=== PATIENT | female | born 1970 | race Caucasian/White ===

== ENCOUNTER 2018-12-17 09:34 | Inpatient (IN) | payer MEDICAID, MEDICARE ==
[~2018-12-17] VITALS: Ht 149.9 cm; Wt 55.9 kg
[~2018-12-17 09:34] MED LIST: ADV500 IH; CLOZ100 PO; FERR-89 PO; FOLI1 PO; INSLAN SQ; LEVO50TA4 PO; METF-445 PO; METO25 PO; PANT40TA25 PO; SIMV-260 PO; SITA25 PO
[2018-12-17 10:14] LABS: GLUCOSE,POINT OF CARE 195 MG/DL (70-110)
[2018-12-17 11:41] LABS: BASOPHILS % (AUTO) 0.5 % (0.0-2.0); HEMATOCRIT 35.6 % (36-46); HEMOGLOBIN 11.3 g/dL (12.0-16.0); LYMPHOCYTES # (AUTO) 1.6 K/uL (1.0-4.8); LYMPHOCYTES % (AUTO) 17.7 % (22.0-44.0); MEAN CORPUSCULAR HEMOGLOBIN 26.4 pg (26.0-34.0); MEAN CORPUSCULAR HGB CONC 31.7 G/dL (31.0-37.0); MEAN CORPUSCULAR VOLUME 83 fL (80-100); MONOCYTES # (AUTO) 0.6 K/uL (0.1-1.0); MONOCYTES % (AUTO) 7.3 % (2.0-9.0); NEUTROPHILS # (AUTO) 6.5 K/uL (1.8-7.7); NEUTROPHILS % (AUTO) 73.5 % (40.0-70.0); PLATELET COUNT (AUTO) 357 K/uL (150-450); RED BLOOD CELL COUNT(AUTO) 4.28 MIL/uL (4.00-5.20); RED CELL DISTRIBUTION WIDTH 15.6 % (11.5-14.5)
[2018-12-17 11:42] LABS: AMPHET/METH SCREEN,URINE NEGATIVE (NEGATIVE); BARBITURATE SCREEN, URINE NEGATIVE (NEGATIVE); BENZODIAZEPINES SCREEN,URINE NEGATIVE (NEGATIVE); CANNABINOID SCREEN,URINE NEGATIVE (NEGATIVE); COCAINE SCREEN,URINE NEGATIVE (NEGATIVE); METHADONE SCREEN, URINE NEGATIVE (NEGATIVE); OPIATE SCREEN,URINE NEGATIVE (NEGATIVE)
[2018-12-17 11:43] LABS: PHENCYCLIDINE SCREEN,URINE NEGATIVE (NEGATIVE)
[2018-12-17 11:49] LABS: ANION GAP 10 mmol/L (8-16); CALCIUM, TOTAL 8.6 mg/dL (8.8-10.5); CARBON DIOXIDE 25 mmol/L (22-29); CHLORIDE 105 mmol/L (98-107); CREATININE 1.07 mg/dL (0.60-1.30); GLOMERULAR FILTR. RATE CALC 54 mL/min (>60); GLUCOSE,RANDOM 142 mg/dL (70-110); POTASSIUM 3.8 mmol/L (3.5-5.1); SODIUM SERUM 140 mmol/L (136-145); UREA NITROGEN, BLOOD 13 mg/dL (7-18)
[2018-12-17 11:55] LABS: ALANINE AMINOTRANSFERASE 23 U/L (12-78); ALBUMIN 3.1 g/dL (3.4-5.0); ALKALINE PHOSPHATASE 85 U/L (46-116); ASPARTATE AMINOTRANSFERASE 29 U/L (15-37); BILIRUBIN,TOTAL 0.4 mg/dL (0.1-1.0); TOTAL PROTEIN, SERUM 6.4 g/dL (6.4-8.2)
[2018-12-17 11:56] LABS: APPEARANCE,URINE CLEAR (CLEAR); BILIRUBIN,URINE NEGATIVE (NEGATIVE); GLUCOSE, URINE (UA) NEGATIVE (NEGATIVE); KETONES,URINE 15 mg/dL (NEGATIVE); LEUKOCYTE ESTERASE ,URINE NEGATIVE (NEGATIVE); NITRATE,URINE NEGATIVE (NEGATIVE); OCCULT BLOOD,URINE NEGATIVE (NEGATIVE); PH,URINE 5.5 (5.0-8.0); PROTEIN,URINE NEGATIVE (NEGATIVE); UROBILINOGEN,URINE 0.2 mg/dL (<=1.0)
[2018-12-17] MEDS ORDERED: HALOPERIDOL 5 MG TABLET PO PRN (16:15)
[2018-12-17 18:54] LABS: GLUCOMETER DEV NAME(LOC) BV2X.; GLUCOSE,POINT OF CARE 310 MG/DL (70-110)
[2018-12-17 18:55] VITALS: BP 126/86
[2018-12-17] MEDS ORDERED: MAGNESIUM HYDROXIDE SUSPENSION 30 ML UDCUP PO PRN (19:30)
[2018-12-17] MEDS ORDERED: ONDANSETRON HCL 4 MG TABLET PO PRN (19:30)
[2018-12-17] MEDS ORDERED: NICOTINE 14 MG/24 HOUR PATCH TD PRN (19:30)
[2018-12-17] MEDS ORDERED: DOCUSATE SODIUM 100 MG CAPSULE PO PRN (19:30)
[2018-12-17] MEDS ORDERED: GLUCAGON,HUMAN RECOMBINANT 1 MG VIAL IM PRN (19:30)
[2018-12-17] MEDS ORDERED: CloNIDine HCL 0.1 MG TABLET PO PRN (19:30)
[2018-12-17] MEDS ORDERED: ACETAMINOPHEN 325 MG TABLET PO PRN (19:30)
[2018-12-17] MEDS ORDERED: ALBUTEROL SULFATE HFA 90 MCG/PUFF 8 GM INHALER IH PRN (19:30)
[2018-12-17] MEDS ORDERED: GuaiFENesin/D-METHORPHAN [SUGAR-FREE] 200-20MG/10 ML SYRUP UDCUP PO PRN (19:30)
[2018-12-17] MEDS ORDERED: LOPERAMIDE HCL 2 MG CAPSULE PO PRN (19:30)
[2018-12-17] MEDS ORDERED: MAG HYDROX/AL HYDROX/SIMETH ES 30 ML SUSPENSION UDCUP PO PRN (19:30)
[2018-12-17] MEDS ORDERED: PETROLATUM,WHITE 28 GM JELLY TP PRN (19:30)
[2018-12-17 20:29] LABS: GLUCOMETER DEV NAME(LOC) BV2X.; GLUCOSE,POINT OF CARE 209 MG/DL (70-110)
[2018-12-17] MEDS: LORazepam 2 MG TABLET PO PRN (20:36)
[2018-12-17] MEDS: FLUTICASONE/VILANTEROL 200-25 MCG/INH INHALER [14] IH SCH (20:43)
[2018-12-17] MEDS: INSULIN LISPRO 100 UNITS/ML SQ PRN (20:47)
[2018-12-17] MEDS: INSULIN GLARGINE,HUM.REC.ANLOG 100 UNITS/ML SQ SCH (20:47)
[2018-12-18 00:40] VITALS: BP 117/66
[2018-12-18] MEDS ORDERED: LEVOTHYROXINE SODIUM 100 MCG TABLET PO SCH (06:30)
[2018-12-18] MEDS: MetFORMIN HCL 850 MG TABLET PO SCH ×3 (07:00→17:05)
[2018-12-18] MEDS: FERROUS SULFATE 325 MG EC TABLET PO SCH (07:00)
[2018-12-18 07:10] LABS: GLUCOMETER DEV NAME(LOC) BV2X.; GLUCOSE,POINT OF CARE 135 MG/DL (70-110)
[2018-12-18 07:57] LABS: BASOPHILS % (AUTO) 0.9 % (0.0-2.0); EOSINOPHILS % (AUTO) 2.9 % (1.0-6.0); HEMATOCRIT 34.6 % (36-46); HEMOGLOBIN 11.3 g/dL (12.0-16.0); LYMPHOCYTES # (AUTO) 1.6 K/uL (1.0-4.8); LYMPHOCYTES % (AUTO) 25.1 % (22.0-44.0); MEAN CORPUSCULAR HEMOGLOBIN 26.9 pg (26.0-34.0); MEAN CORPUSCULAR HGB CONC 32.7 G/dL (31.0-37.0); MEAN CORPUSCULAR VOLUME 83 fL (80-100); MONOCYTES # (AUTO) 0.5 K/uL (0.1-1.0); MONOCYTES % (AUTO) 7.9 % (2.0-9.0); NEUTROPHILS % (AUTO) 63.2 % (40.0-70.0); PLATELET COUNT (AUTO) 339 K/uL (150-450); RED BLOOD CELL COUNT(AUTO) 4.19 MIL/uL (4.00-5.20); RED CELL DISTRIBUTION WIDTH 15.9 % (11.5-14.5)
[2018-12-18 08:10] LABS: HEMOGLOBIN A1C 7.6 % (4.5-6.2)
[2018-12-18 08:24] VITALS: BP 125/72
[2018-12-18] MEDS: SitaGLIPtin PHOSPHATE 50 MG TABLET PO SCH (08:30)
[2018-12-18] MEDS: METOPROLOL TARTRATE 25 MG TABLET PO SCH ×2 (08:30→17:05)
[2018-12-18] MEDS: SIMVASTATIN 20 MG TABLET PO SCH (08:30)
[2018-12-18] MEDS: FLUTICASONE/VILANTEROL 200-25 MCG/INH INHALER [14] IH SCH ×2 (08:31→20:01)
[2018-12-18] MEDS: PANTOPRAZOLE SODIUM 40 MG DR TABLET PO SCH (08:31)
[2018-12-18 08:32] LABS: ALBUMIN 2.9 g/dL (3.4-5.0); BILIRUBIN,TOTAL 0.2 mg/dL (0.1-1.0); CALCIUM, TOTAL 8.4 mg/dL (8.8-10.5); CHOL/HDL RATIO 4.8 (3.9-5.7); CREATININE 0.99 mg/dL (0.60-1.30); POTASSIUM 4.5 mmol/L (3.5-5.1); THYROID STIMULATING HORMONE 57.58 uIU/mL (0.36-3.74); TOTAL PROTEIN, SERUM 5.8 g/dL (6.4-8.2)
[2018-12-18 16:50] LABS: GLUCOMETER DEV NAME(LOC) BV2X.; GLUCOSE,POINT OF CARE 122 MG/DL (70-110)
[2018-12-18 17:14] LABS: GLUCOMETER DEV NAME(LOC) BV2X.; GLUCOSE,POINT OF CARE 139 MG/DL (70-110)
[2018-12-18 18:57] VITALS: BP 104/78
[2018-12-18] MEDS: QUEtiapine FUMARATE 200 MG TABLET PO SCH (20:01)
[2018-12-18] MEDS: INSULIN GLARGINE,HUM.REC.ANLOG 100 UNITS/ML SQ SCH (20:04)
[2018-12-18 20:14] LABS: GLUCOMETER DEV NAME(LOC) BV2X.; GLUCOSE,POINT OF CARE 116 MG/DL (70-110)
[2018-12-19 02:53] VITALS: BP 104/61
[2018-12-19 06:49] LABS: GLUCOMETER DEV NAME(LOC) BV2X.; GLUCOSE,POINT OF CARE 103 MG/DL (70-110)
[2018-12-19] MEDS: LEVOTHYROXINE SODIUM 150 MCG TABLET PO SCH (07:02)
[2018-12-19] MEDS: MetFORMIN HCL 850 MG TABLET PO SCH ×2 (07:02→17:00)
[2018-12-19] MEDS: FERROUS SULFATE 325 MG EC TABLET PO SCH (07:02)
[2018-12-19 08:49] VITALS: BP 112/63
[2018-12-19] MEDS: FLUTICASONE/VILANTEROL 200-25 MCG/INH INHALER [14] IH SCH ×3 (09:00→20:36)
[2018-12-19] MEDS: SitaGLIPtin PHOSPHATE 50 MG TABLET PO SCH (09:16)
[2018-12-19] MEDS: METOPROLOL TARTRATE 25 MG TABLET PO SCH ×2 (09:16→17:01)
[2018-12-19] MEDS: PANTOPRAZOLE SODIUM 40 MG DR TABLET PO SCH (09:16)
[2018-12-19] MEDS: SIMVASTATIN 20 MG TABLET PO SCH (09:16)
[2018-12-19] MEDS: INSULIN LISPRO 100 UNITS/ML SQ PRN (10:52)
[2018-12-19 11:04] LABS: GLUCOMETER DEV NAME(LOC) BV2X.; GLUCOSE,POINT OF CARE 189 MG/DL (70-110)
[2018-12-19 16:29] VITALS: BP 128/82
[2018-12-19 17:05] LABS: GLUCOMETER DEV NAME(LOC) BV2X.; GLUCOSE,POINT OF CARE 97 MG/DL (70-110)
[2018-12-19] MEDS: INSULIN GLARGINE,HUM.REC.ANLOG 100 UNITS/ML SQ SCH (20:35)
[2018-12-19] MEDS: QUEtiapine FUMARATE 200 MG TABLET PO SCH (20:36)
[2018-12-19 20:39] LABS: GLUCOMETER DEV NAME(LOC) BV2X.; GLUCOSE,POINT OF CARE 166 MG/DL (70-110)
[2018-12-20 06:28] VITALS: BP 118/81
[2018-12-20] MEDS: MetFORMIN HCL 850 MG TABLET PO SCH ×2 (07:04→17:00)
[2018-12-20] MEDS: LEVOTHYROXINE SODIUM 150 MCG TABLET PO SCH (07:04)
[2018-12-20] MEDS: FERROUS SULFATE 325 MG EC TABLET PO SCH (07:04)
[2018-12-20 07:29] LABS: GLUCOMETER DEV NAME(LOC) BV2X.; GLUCOSE,POINT OF CARE 93 MG/DL (70-110)
[2018-12-20 08:52] VITALS: BP 116/72
[2018-12-20] MEDS: FLUTICASONE/VILANTEROL 200-25 MCG/INH INHALER [14] IH SCH ×3 (09:00→20:11)
[2018-12-20] MEDS: METOPROLOL TARTRATE 25 MG TABLET PO SCH ×2 (09:11→17:00)
[2018-12-20] MEDS: SitaGLIPtin PHOSPHATE 50 MG TABLET PO SCH (09:11)
[2018-12-20] MEDS: PANTOPRAZOLE SODIUM 40 MG DR TABLET PO SCH (09:11)
[2018-12-20] MEDS: SIMVASTATIN 20 MG TABLET PO SCH (09:14)
[2018-12-20 11:28] LABS: GLUCOMETER DEV NAME(LOC) BV2X.; GLUCOSE,POINT OF CARE 121 MG/DL (70-110)
[2018-12-20] MEDS: QUEtiapine FUMARATE 200 MG TABLET PO SCH (20:12)
[2018-12-20] MEDS: INSULIN GLARGINE,HUM.REC.ANLOG 100 UNITS/ML SQ SCH (21:00)
[2018-12-21] MEDS: LEVOTHYROXINE SODIUM 150 MCG TABLET PO SCH (06:30)
[2018-12-21 06:43] VITALS: BP 120/81
[2018-12-21] MEDS: MetFORMIN HCL 850 MG TABLET PO SCH ×2 (07:06→16:28)
[2018-12-21] MEDS: FERROUS SULFATE 325 MG EC TABLET PO SCH (07:06)
[2018-12-21 08:54] VITALS: BP 125/82
[2018-12-21] MEDS: FLUTICASONE/VILANTEROL 200-25 MCG/INH INHALER [14] IH SCH ×3 (09:00→20:23)
[2018-12-21] MEDS: METOPROLOL TARTRATE 25 MG TABLET PO SCH ×2 (09:05→16:28)
[2018-12-21] MEDS: SitaGLIPtin PHOSPHATE 50 MG TABLET PO SCH (09:05)
[2018-12-21] MEDS: PANTOPRAZOLE SODIUM 40 MG DR TABLET PO SCH (09:05)
[2018-12-21] MEDS: SIMVASTATIN 20 MG TABLET PO SCH (09:05)
[2018-12-21] MEDS: LORazepam 2 MG TABLET PO PRN (15:54)
[2018-12-21 16:12] VITALS: BP 125/83
[2018-12-21 16:35] LABS: GLUCOMETER DEV NAME(LOC) BV2S.; GLUCOSE,POINT OF CARE 193 MG/DL (70-110)
[2018-12-21] MEDS: INSULIN LISPRO 100 UNITS/ML SQ PRN ×2 (16:35→20:41)
[2018-12-21] MEDS: QUEtiapine FUMARATE 200 MG TABLET PO SCH (20:23)
[2018-12-21 20:35] LABS: GLUCOMETER DEV NAME(LOC) BV2S.; GLUCOSE,POINT OF CARE 150 MG/DL (70-110)
[2018-12-21] MEDS: INSULIN GLARGINE,HUM.REC.ANLOG 100 UNITS/ML SQ SCH (20:41)
[2018-12-22 02:10] VITALS: BP 122/86
[2018-12-22] MEDS: LEVOTHYROXINE SODIUM 150 MCG TABLET PO SCH (06:28)
[2018-12-22 06:30] LABS: GLUCOMETER DEV NAME(LOC) BV2S.; GLUCOSE,POINT OF CARE 118 MG/DL (70-110)
[2018-12-22] MEDS: MetFORMIN HCL 850 MG TABLET PO SCH ×2 (06:41→17:23)
[2018-12-22] MEDS: FERROUS SULFATE 325 MG EC TABLET PO SCH (06:42)
[2018-12-22 08:13] LABS: BASOPHILS % (AUTO) 0.7 % (0.0-2.0); EOSINOPHILS % (AUTO) 3.2 % (1.0-6.0); HEMATOCRIT 33.2 % (36-46); HEMOGLOBIN 10.7 g/dL (12.0-16.0); LYMPHOCYTES # (AUTO) 1.6 K/uL (1.0-4.8); LYMPHOCYTES % (AUTO) 22.8 % (22.0-44.0); MEAN CORPUSCULAR HEMOGLOBIN 26.8 pg (26.0-34.0); MEAN CORPUSCULAR HGB CONC 32.4 G/dL (31.0-37.0); MEAN CORPUSCULAR VOLUME 83 fL (80-100); MONOCYTES # (AUTO) 0.6 K/uL (0.1-1.0); MONOCYTES % (AUTO) 8.7 % (2.0-9.0); NEUTROPHILS # (AUTO) 4.5 K/uL (1.8-7.7); NEUTROPHILS % (AUTO) 64.6 % (40.0-70.0); PLATELET COUNT (AUTO) 290 K/uL (150-450); RED BLOOD CELL COUNT(AUTO) 4.01 MIL/uL (4.00-5.20); RED CELL DISTRIBUTION WIDTH 15.8 % (11.5-14.5)
[2018-12-22 08:18] VITALS: BP 110/64
[2018-12-22] MEDS: PANTOPRAZOLE SODIUM 40 MG DR TABLET PO SCH (09:24)
[2018-12-22] MEDS: METOPROLOL TARTRATE 25 MG TABLET PO SCH ×2 (09:24→17:23)
[2018-12-22] MEDS: SIMVASTATIN 20 MG TABLET PO SCH (09:24)
[2018-12-22] MEDS: SitaGLIPtin PHOSPHATE 50 MG TABLET PO SCH (09:24)
[2018-12-22] MEDS: FLUTICASONE/VILANTEROL 200-25 MCG/INH INHALER [14] IH SCH ×2 (09:25→21:44)
[2018-12-22 16:21] VITALS: BP 123/84
[2018-12-22 17:10] LABS: GLUCOMETER DEV NAME(LOC) BV2S.; GLUCOSE,POINT OF CARE 112 MG/DL (70-110)
[2018-12-22 21:19] LABS: GLUCOMETER DEV NAME(LOC) BV2S.; GLUCOSE,POINT OF CARE 101 MG/DL (70-110)
[2018-12-22] MEDS: QUEtiapine FUMARATE 200 MG TABLET PO SCH (21:44)
[2018-12-22] MEDS: ZOLPIDEM TARTRATE 10 MG TABLET PO PRN (21:44)
[2018-12-22] MEDS: INSULIN GLARGINE,HUM.REC.ANLOG 100 UNITS/ML SQ SCH (22:43)
[2018-12-23 06:38] VITALS: BP 105/63
[2018-12-23 06:49] LABS: GLUCOMETER DEV NAME(LOC) BV2S.; GLUCOSE,POINT OF CARE 91 MG/DL (70-110)
[2018-12-23] MEDS: MetFORMIN HCL 850 MG TABLET PO SCH ×2 (06:51→16:03)
[2018-12-23] MEDS: LEVOTHYROXINE SODIUM 150 MCG TABLET PO SCH (06:51)
[2018-12-23] MEDS: FERROUS SULFATE 325 MG EC TABLET PO SCH (06:52)
[2018-12-23 08:31] VITALS: BP 101/66
[2018-12-23] MEDS: SIMVASTATIN 20 MG TABLET PO SCH (08:58)
[2018-12-23] MEDS: PANTOPRAZOLE SODIUM 40 MG DR TABLET PO SCH (08:58)
[2018-12-23] MEDS: SitaGLIPtin PHOSPHATE 50 MG TABLET PO SCH (08:58)
[2018-12-23] MEDS: METOPROLOL TARTRATE 25 MG TABLET PO SCH ×2 (08:59→16:03)
[2018-12-23] MEDS: FLUTICASONE/VILANTEROL 200-25 MCG/INH INHALER [14] IH SCH ×2 (09:09→20:26)
[2018-12-23 11:04] LABS: GLUCOMETER DEV NAME(LOC) BV2S.; GLUCOSE,POINT OF CARE 98 MG/DL (70-110)
[2018-12-23] MEDS ORDERED: DiphenhydrAMINE HCL 25 MG CAPSULE PO ONE (13:00)
[2018-12-23] MEDS ORDERED: HydrOXYzine HCL 25 MG TABLET PO ONE (13:00)
[2018-12-23] MEDS ORDERED: FAMOTIDINE 20 MG TABLET PO ONE (13:00)
[2018-12-23 16:09] LABS: GLUCOMETER DEV NAME(LOC) BV2S.; GLUCOSE,POINT OF CARE 217 MG/DL (70-110)
[2018-12-23] MEDS: INSULIN LISPRO 100 UNITS/ML SQ PRN (16:44)
[2018-12-23 17:01] VITALS: BP_SYST 122; BP_SYST 82; BP_DIAS 66; BP_DIAS 77
[2018-12-23] MEDS: LORazepam 2 MG TABLET PO PRN (20:23)
[2018-12-23] MEDS: QUEtiapine FUMARATE 200 MG TABLET PO SCH (20:23)
[2018-12-23] MEDS: INSULIN GLARGINE,HUM.REC.ANLOG 100 UNITS/ML SQ SCH (20:26)
[2018-12-23 20:34] LABS: GLUCOMETER DEV NAME(LOC) BV2S.; GLUCOSE,POINT OF CARE 98 MG/DL (70-110)
[2018-12-24 06:31] VITALS: BP 104/79
[2018-12-24 06:50] LABS: GLUCOMETER DEV NAME(LOC) BV2S.; GLUCOSE,POINT OF CARE 107 MG/DL (70-110)
[2018-12-24] MEDS: FERROUS SULFATE 325 MG EC TABLET PO SCH (07:19)
[2018-12-24] MEDS: LEVOTHYROXINE SODIUM 150 MCG TABLET PO SCH (07:19)
[2018-12-24] MEDS: MetFORMIN HCL 850 MG TABLET PO SCH ×4 (07:20→18:38)
[2018-12-24] MEDS: FLUTICASONE/VILANTEROL 200-25 MCG/INH INHALER [14] IH SCH ×2 (09:00→21:00)
[2018-12-24] MEDS: SitaGLIPtin PHOSPHATE 50 MG TABLET PO SCH (09:00)
[2018-12-24] MEDS: METOPROLOL TARTRATE 25 MG TABLET PO SCH ×4 (09:00→18:39)
[2018-12-24] MEDS: PANTOPRAZOLE SODIUM 40 MG DR TABLET PO SCH (09:00)
[2018-12-24] MEDS: SIMVASTATIN 20 MG TABLET PO SCH (09:00)
[2018-12-24 09:35] VITALS: BP 124/65
[2018-12-24] MEDS ORDERED: CALAMINE/PRAMOXINE HCL 180 ML LOTION TP PRN (10:45)
[2018-12-24] MEDS ORDERED: CALAMINE/ZINC OXIDE 177 ML LOTION TP PRN (11:03)
[2018-12-24] MEDS: INSULIN LISPRO 100 UNITS/ML SQ PRN (11:09)
[2018-12-24 11:19] LABS: GLUCOMETER DEV NAME(LOC) BV2S.; GLUCOSE,POINT OF CARE 190 MG/DL (70-110)
[2018-12-24] MEDS: QUEtiapine FUMARATE 100 MG TABLET PO SCH (12:17)
[2018-12-24 16:14] VITALS: BP 112/73
[2018-12-24 16:29] LABS: GLUCOMETER DEV NAME(LOC) BV2S.; GLUCOSE,POINT OF CARE 166 MG/DL (70-110)
[2018-12-24] MEDS: QUEtiapine FUMARATE 200 MG TABLET PO SCH (21:00)
[2018-12-24] MEDS: INSULIN GLARGINE,HUM.REC.ANLOG 100 UNITS/ML SQ SCH (21:00)
[2018-12-25] MEDS: ZOLPIDEM TARTRATE 10 MG TABLET PO PRN (00:07)
[2018-12-25 01:36] VITALS: BP 127/87
[2018-12-25] MEDS: FERROUS SULFATE 325 MG EC TABLET PO SCH (07:00)
[2018-12-25] MEDS: MetFORMIN HCL 850 MG TABLET PO SCH ×2 (07:00→17:00)
[2018-12-25] MEDS: LEVOTHYROXINE SODIUM 150 MCG TABLET PO SCH (07:31)
[2018-12-25] MEDS: SIMVASTATIN 20 MG TABLET PO SCH (08:36)
[2018-12-25] MEDS: SitaGLIPtin PHOSPHATE 50 MG TABLET PO SCH (08:36)
[2018-12-25] MEDS: PANTOPRAZOLE SODIUM 40 MG DR TABLET PO SCH (08:36)
[2018-12-25] MEDS: METOPROLOL TARTRATE 25 MG TABLET PO SCH ×2 (08:36→17:00)
[2018-12-25] MEDS: LORazepam 2 MG TABLET PO PRN (08:37)
[2018-12-25] MEDS: FLUTICASONE/VILANTEROL 200-25 MCG/INH INHALER [14] IH SCH ×2 (08:38→21:00)
[2018-12-25 08:57] VITALS: BP 130/84
[2018-12-25 11:14] LABS: GLUCOMETER DEV NAME(LOC) BV2S.; GLUCOSE,POINT OF CARE 110 MG/DL (70-110)
[2018-12-25] MEDS: QUEtiapine FUMARATE 100 MG TABLET PO SCH (12:19)
[2018-12-25 16:31] VITALS: BP 102/102
[2018-12-25 16:39] LABS: GLUCOMETER DEV NAME(LOC) BV2S.; GLUCOSE,POINT OF CARE 158 MG/DL (70-110)
[2018-12-25] MEDS: INSULIN GLARGINE,HUM.REC.ANLOG 100 UNITS/ML SQ SCH (21:00)
[2018-12-25] MEDS: QUEtiapine FUMARATE 200 MG TABLET PO SCH (21:00)
[2018-12-26 01:34] VITALS: BP 116/84
[2018-12-26 06:29] LABS: GLUCOMETER DEV NAME(LOC) BV2S.; GLUCOSE,POINT OF CARE 149 MG/DL (70-110)
[2018-12-26] MEDS: FERROUS SULFATE 325 MG EC TABLET PO SCH ×2 (06:40→16:48)
[2018-12-26] MEDS: LEVOTHYROXINE SODIUM 150 MCG TABLET PO SCH (06:40)
[2018-12-26] MEDS: MetFORMIN HCL 850 MG TABLET PO SCH ×2 (06:40→16:48)
[2018-12-26] MEDS: INSULIN LISPRO 100 UNITS/ML SQ PRN ×4 (06:52→20:33)
[2018-12-26] MEDS: FLUTICASONE/VILANTEROL 200-25 MCG/INH INHALER [14] IH SCH ×2 (08:11→20:30)
[2018-12-26] MEDS: METOPROLOL TARTRATE 25 MG TABLET PO SCH ×2 (08:12→16:48)
[2018-12-26] MEDS: SIMVASTATIN 20 MG TABLET PO SCH (08:12)
[2018-12-26] MEDS: SitaGLIPtin PHOSPHATE 50 MG TABLET PO SCH (08:12)
[2018-12-26] MEDS: PANTOPRAZOLE SODIUM 40 MG DR TABLET PO SCH (08:12)
[2018-12-26 08:37] VITALS: BP 115/75
[2018-12-26 11:14] LABS: GLUCOMETER DEV NAME(LOC) BV2S.; GLUCOSE,POINT OF CARE 175 MG/DL (70-110)
[2018-12-26] MEDS: QUEtiapine FUMARATE 100 MG TABLET PO SCH (11:56)
[2018-12-26 16:13] VITALS: BP 100/63
[2018-12-26 16:34] LABS: GLUCOMETER DEV NAME(LOC) BV2S.; GLUCOSE,POINT OF CARE 212 MG/DL (70-110)
[2018-12-26] MEDS: QUEtiapine FUMARATE 200 MG TABLET PO SCH (20:30)
[2018-12-26] MEDS: INSULIN GLARGINE,HUM.REC.ANLOG 100 UNITS/ML SQ SCH (20:33)
[2018-12-26 20:53] LABS: GLUCOMETER DEV NAME(LOC) BV2S.; GLUCOSE,POINT OF CARE 174 MG/DL (70-110)
[2018-12-26] MEDS: ZOLPIDEM TARTRATE 10 MG TABLET PO PRN (22:33)
[2018-12-27 00:14] VITALS: BP 106/70
[2018-12-27] MEDS: LEVOTHYROXINE SODIUM 150 MCG TABLET PO SCH (07:06)
[2018-12-27] MEDS: FERROUS SULFATE 325 MG EC TABLET PO SCH ×3 (07:06→16:51)
[2018-12-27] MEDS: MetFORMIN HCL 850 MG TABLET PO SCH ×2 (07:06→16:51)
[2018-12-27 07:08] LABS: GLUCOMETER DEV NAME(LOC) BV2S.; GLUCOSE,POINT OF CARE 89 MG/DL (70-110)
[2018-12-27 08:20] VITALS: BP 117/80
[2018-12-27] MEDS: METOPROLOL TARTRATE 25 MG TABLET PO SCH ×2 (08:27→16:51)
[2018-12-27] MEDS: SIMVASTATIN 20 MG TABLET PO SCH (08:28)
[2018-12-27] MEDS: PANTOPRAZOLE SODIUM 40 MG DR TABLET PO SCH (08:28)
[2018-12-27] MEDS: FLUTICASONE/VILANTEROL 200-25 MCG/INH INHALER [14] IH SCH ×2 (08:28→21:00)
[2018-12-27] MEDS: SitaGLIPtin PHOSPHATE 50 MG TABLET PO SCH (08:28)
[2018-12-27 10:59] LABS: GLUCOMETER DEV NAME(LOC) BV2S.; GLUCOSE,POINT OF CARE 158 MG/DL (70-110)
[2018-12-27] MEDS: QUEtiapine FUMARATE 100 MG TABLET PO SCH (11:51)
[2018-12-27 16:12] VITALS: BP 110/69
[2018-12-27] MEDS: INSULIN LISPRO 100 UNITS/ML SQ PRN (16:38)
[2018-12-27 16:45] LABS: GLUCOMETER DEV NAME(LOC) BV2S.; GLUCOSE,POINT OF CARE 208 MG/DL (70-110)
[2018-12-27] MEDS: QUEtiapine FUMARATE 200 MG TABLET PO SCH ×2 (21:00→21:32)
[2018-12-27] MEDS: INSULIN GLARGINE,HUM.REC.ANLOG 100 UNITS/ML SQ SCH (21:00)
[2018-12-27] MEDS: ZOLPIDEM TARTRATE 10 MG TABLET PO PRN (21:32)
[2018-12-28 04:48] VITALS: BP 120/81
[2018-12-28] MEDS: LEVOTHYROXINE SODIUM 150 MCG TABLET PO SCH (06:30)
[2018-12-28] MEDS: MetFORMIN HCL 850 MG TABLET PO SCH ×2 (07:00→17:00)
[2018-12-28] MEDS: FERROUS SULFATE 325 MG EC TABLET PO SCH ×3 (07:00→17:00)
[2018-12-28] MEDS: SIMVASTATIN 20 MG TABLET PO SCH (08:14)
[2018-12-28] MEDS: METOPROLOL TARTRATE 25 MG TABLET PO SCH ×2 (08:14→17:00)
[2018-12-28] MEDS: PANTOPRAZOLE SODIUM 40 MG DR TABLET PO SCH (08:14)
[2018-12-28] MEDS: SitaGLIPtin PHOSPHATE 50 MG TABLET PO SCH (08:14)
[2018-12-28] MEDS: FLUTICASONE/VILANTEROL 200-25 MCG/INH INHALER [14] IH SCH ×2 (08:15→21:09)
[2018-12-28 08:32] VITALS: BP 121/78
[2018-12-28] MEDS ORDERED: LEVO50TA11 PO (09:19)
[2018-12-28] MEDS ORDERED: SIMV-260 PO (09:19)
[2018-12-28] MEDS ORDERED: FLUT1BLS IH (09:19)
[2018-12-28] MEDS ORDERED: METF-445 PO (09:19)
[2018-12-28] MEDS ORDERED: FERR-89 PO (09:19)
[2018-12-28] MEDS ORDERED: INSLAN SQ (09:19)
[2018-12-28] MEDS ORDERED: SITA25 PO (09:19)
[2018-12-28] MEDS ORDERED: METO25 PO (09:19)
[2018-12-28] MEDS ORDERED: QUET200T PO (09:36)
[2018-12-28] MEDS ORDERED: QUET100T PO (09:36)
[2018-12-28] MEDS: QUEtiapine FUMARATE 100 MG TABLET PO SCH (11:30)
[2018-12-28 16:47] VITALS: BP 130/89
[2018-12-28 20:44] LABS: GLUCOMETER DEV NAME(LOC) BV2S.; GLUCOSE,POINT OF CARE 240 MG/DL (70-110)
[2018-12-28] MEDS: QUEtiapine FUMARATE 200 MG TABLET PO SCH (21:08)
[2018-12-28] MEDS: INSULIN LISPRO 100 UNITS/ML SQ PRN (21:10)
[2018-12-28] MEDS: INSULIN GLARGINE,HUM.REC.ANLOG 100 UNITS/ML SQ SCH (21:11)
[2018-12-29 00:35] VITALS: BP 114/75
[2018-12-29] MEDS: LEVOTHYROXINE SODIUM 150 MCG TABLET PO SCH (06:30)
[2018-12-29] MEDS: MetFORMIN HCL 850 MG TABLET PO SCH ×2 (07:00→16:38)
[2018-12-29] MEDS: FERROUS SULFATE 325 MG EC TABLET PO SCH ×3 (07:00→16:38)
[2018-12-29] MEDS: METOPROLOL TARTRATE 25 MG TABLET PO SCH ×2 (09:00→16:39)
[2018-12-29] MEDS: FLUTICASONE/VILANTEROL 200-25 MCG/INH INHALER [14] IH SCH ×2 (09:00→21:00)
[2018-12-29] MEDS: SitaGLIPtin PHOSPHATE 50 MG TABLET PO SCH (09:00)
[2018-12-29] MEDS: PANTOPRAZOLE SODIUM 40 MG DR TABLET PO SCH (09:00)
[2018-12-29] MEDS: SIMVASTATIN 20 MG TABLET PO SCH (09:00)
[2018-12-29] MEDS: QUEtiapine FUMARATE 100 MG TABLET PO SCH (12:00)
[2018-12-29] MEDS: INSULIN GLARGINE,HUM.REC.ANLOG 100 UNITS/ML SQ SCH (21:00)
[2018-12-29] MEDS: QUEtiapine FUMARATE 200 MG TABLET PO SCH (21:00)
[2018-12-30 02:46] VITALS: BP 140/72
[2018-12-30] MEDS: ZOLPIDEM TARTRATE 10 MG TABLET PO PRN (02:49)
[2018-12-30] MEDS: MetFORMIN HCL 850 MG TABLET PO SCH ×2 (06:38→17:17)
[2018-12-30] MEDS: FERROUS SULFATE 325 MG EC TABLET PO SCH ×3 (06:38→17:17)
[2018-12-30] MEDS: LEVOTHYROXINE SODIUM 150 MCG TABLET PO SCH (06:38)
[2018-12-30 08:38] VITALS: BP 112/83
[2018-12-30] MEDS: FLUTICASONE/VILANTEROL 200-25 MCG/INH INHALER [14] IH SCH ×2 (09:00→21:17)
[2018-12-30] MEDS: PANTOPRAZOLE SODIUM 40 MG DR TABLET PO SCH (09:20)
[2018-12-30] MEDS: LORazepam 2 MG TABLET PO PRN (09:20)
[2018-12-30] MEDS: SIMVASTATIN 20 MG TABLET PO SCH (09:20)
[2018-12-30] MEDS: METOPROLOL TARTRATE 25 MG TABLET PO SCH ×2 (09:20→17:17)
[2018-12-30] MEDS: SitaGLIPtin PHOSPHATE 50 MG TABLET PO SCH (09:20)
[2018-12-30] MEDS ORDERED: HALOPERIDOL LACTATE 5 MG/ML VIAL ONE (09:45)
[2018-12-30] MEDS ORDERED: LORazepam 2 MG/ML VIAL ONE (09:45)
[2018-12-30] MEDS ORDERED: LORazepam 2 MG/ML VIAL IM ONE (10:15)
[2018-12-30] MEDS ORDERED: HALOPERIDOL LACTATE 5 MG/ML VIAL IM ONE (10:15)
[2018-12-30] MEDS: INSULIN LISPRO 100 UNITS/ML SQ PRN ×2 (11:47→21:24)
[2018-12-30] MEDS: QUEtiapine FUMARATE 100 MG TABLET PO SCH (12:00)
[2018-12-30 12:09] LABS: GLUCOMETER DEV NAME(LOC) BV3S.; GLUCOSE,POINT OF CARE 208 MG/DL (70-110)
[2018-12-30] MEDS: QUEtiapine FUMARATE 200 MG TABLET PO SCH (21:18)
[2018-12-30] MEDS: INSULIN GLARGINE,HUM.REC.ANLOG 100 UNITS/ML SQ SCH (21:24)
[2018-12-30 21:39] LABS: GLUCOMETER DEV NAME(LOC) BV3S.; GLUCOSE,POINT OF CARE 208 MG/DL (70-110)
[2018-12-31 06:20] LABS: GLUCOMETER DEV NAME(LOC) BV3S.; GLUCOSE,POINT OF CARE 113 MG/DL (70-110)
[2018-12-31 06:40] VITALS: BP 120/79
[2018-12-31] MEDS: FERROUS SULFATE 325 MG EC TABLET PO SCH ×2 (06:42→12:16)
[2018-12-31] MEDS: MetFORMIN HCL 850 MG TABLET PO SCH (06:42)
[2018-12-31] MEDS: LEVOTHYROXINE SODIUM 150 MCG TABLET PO SCH (06:42)
[2018-12-31 08:24] VITALS: BP 106/70
[2018-12-31] MEDS: SitaGLIPtin PHOSPHATE 50 MG TABLET PO SCH (08:35)
[2018-12-31] MEDS: FLUTICASONE/VILANTEROL 200-25 MCG/INH INHALER [14] IH SCH (08:35)
[2018-12-31] MEDS: PANTOPRAZOLE SODIUM 40 MG DR TABLET PO SCH (08:36)
[2018-12-31] MEDS: SIMVASTATIN 20 MG TABLET PO SCH (08:36)
[2018-12-31] MEDS: METOPROLOL TARTRATE 25 MG TABLET PO SCH (08:36)
[2018-12-31] MEDS ORDERED: PANT40TA25 PO (10:02)
[2018-12-31 11:50] LABS: GLUCOMETER DEV NAME(LOC) BV3S.; GLUCOSE,POINT OF CARE 175 MG/DL (70-110)
[2018-12-31] MEDS: INSULIN LISPRO 100 UNITS/ML SQ PRN (12:16)
[2018-12-31] MEDS: QUEtiapine FUMARATE 100 MG TABLET PO SCH (12:16)
== END 2018-12-31 13:30 | disposition home or self-care (01) | DRG 885 ==
LOC: EMS 09:36 → B2X 16:52 → B2S 12-21 09:20 → B3A 12-30 10:00
PROVIDERS: ADMIT Psychiatry & Neurology Child & Adolescent Psychiatry; ATTEND Psychiatry & Neurology Child & Adolescent Psychiatry
DX: F20.0 Paranoid schizophrenia (principal); R45.851 Suicidal ideations; R45.850 Homicidal ideations; D64.9 Anemia, unspecified; E03.9 Hypothyroidism, unspecified; E11.9 Type 2 diabetes mellitus without complications; E78.5 Hyperlipidemia, unspecified; I10 Essential (primary) hypertension; J44.9 Chronic obstructive pulmonary disease, unspecified; K52.9 Noninfective gastroenteritis and colitis, unspecified; L25.9 Unspecified contact dermatitis, unspecified cause; Z59.0 Homelessness; Z91.14 Patient's other noncompliance with medication regimen; Z91.5 Personal history of self-harm; Z88.1 Allergy status to other antibiotic agents; Z88.8 Allergy status to other drugs, medicaments and biological substances
CPT/HCPCS: 83036; 84443; G0480; J1630; J1815; J2060; J3535

== ENCOUNTER 2023-09-19 22:01 | Emergency (ER) | payer MEDICARE, OTHER ==
[~2023-09-19] VITALS: Ht 165.1 cm; Wt 90.0 kg
[~2023-09-19 22:01] MED LIST changes: -ADV500 IH; -CLOZ100 PO; -FERR-89 PO; +FERR325T27 PO; -FOLI1 PO; -INSLAN SQ; +LEVO50TA11 PO; -LEVO50TA4 PO; +PANT-31 PO; -PANT40TA25 PO; +QUET100T PO; +QUET200T PO
[2023-09-19 23:02] VITALS: BP 135/87; PULSE 75; RESP 14; TEMP 98.5
[2023-09-20 00:01] LABS: GLUCOMETER DEV NAME(LOC) ERT.5; GLUCOSE,POINT OF CARE 241 MG/DL (70-110)
[2023-09-20] MEDS: ONDANSETRON HCL 4 MG TABLET PO ONE (00:06)
== END 2023-09-20 05:22 ==
LOC: EMS 22:07
DX: F20.9 Schizophrenia, unspecified (principal); J44.9 Chronic obstructive pulmonary disease, unspecified; E11.9 Type 2 diabetes mellitus without complications; I10 Essential (primary) hypertension; E03.9 Hypothyroidism, unspecified; Z98.890 Other specified postprocedural states; Z88.1 Allergy status to other antibiotic agents; Z88.8 Allergy status to other drugs, medicaments and biological substances
CPT/HCPCS: 99283; 82962; 93005; Q0162